=== PATIENT | female | born 1995 | race Caucasian/White ===

== ENCOUNTER 2023-03-01 22:21 | Emergency (ER) | payer MEDICAID ==
[~2023-03-01] VITALS: Ht 152.4 cm; Wt 81.6 kg
[2023-03-01 22:40] VITALS: BP 150/80; PULSE 65; RESP 17; TEMP 97.9; O2SAT 100
== END 2023-03-02 01:13 | disposition home or self-care (01) ==
LOC: MED 22:21
DX: S60.445A External constriction of left ring finger, initial encounter (principal); W49.04XA Ring or other jewelry causing external constriction, initial encounter; Y92.89 Other specified places as the place of occurrence of the external cause; Y93.89 Activity, other specified; Y99.8 Other external cause status
CPT/HCPCS: 99284

== ENCOUNTER 2023-04-08 15:49 | Emergency (ER) | payer MEDICAID, OTHER ==
[~2023-04-08] VITALS: Ht 152.4 cm; Wt 81.6 kg
[2023-04-08 16:06] VITALS: BP 133/84; PULSE 64; RESP 19; TEMP 98.2; O2SAT 100
[2023-04-08] MEDS: KETOROLAC 30 MG/ML VIAL IM ONE (17:55)
[2023-04-08 18:22] LABS: APPEARANCE,URINE CLEAR (CLEAR); BILIRUBIN,URINE NEGATIVE (NEGATIVE); BLOOD, URINE 1+ (NEGATIVE); COLOR,URINE YELLOW (YELLOW); LEUKOCYTE ESTERASE ,URINE NEGATIVE (NEGATIVE); NITRITE, URINE NEGATIVE (NEGATIVE); PROTEIN,URINE NEGATIVE (NEGATIVE); UGLUCOSE NEGATIVE (NEGATIVE); UROBILINOGEN,URINE 0.2 EU/dL (0.2 - 1)
[2023-04-08 18:29] LABS: BACTERIA,URINE FEW /HPF (None Seen); RBC,URINE 0-5 /HPF (0-5); SQUAMOUS EPITHELIAL CELL,UR 4-10 (MOD) /LPF (0-3 (FEW)); WBC,URINE 0-5 /HPF (0-5)
[2023-04-08] MEDS ORDERED: IBUP-1842 PO (18:41)
[2023-04-08] MEDS ORDERED: ACET-10509 PO (18:41)
== END 2023-04-08 18:50 | disposition home or self-care (01) ==
LOC: MED 15:49
DX: O90.89 Other complications of the puerperium, not elsewhere classified (principal); M54.6 Pain in thoracic spine; M54.50 Low back pain, unspecified; Z86.69 Personal history of other diseases of the nervous system and sense organs; Z79.899 Other long term (current) drug therapy
CPT/HCPCS: 81001; 81025; 96372; 99283; J1885